=== PATIENT | male | born 1995 | race Caucasian/White ===

== ENCOUNTER 2020-01-20 06:50 | Outpatient (NON) | payer OTHER, SELFPAY ==
[2020-01-20 19:12] LABS: SARS-CoV-2 RNA PCR Negative
== END 2020-01-20 06:51 ==
PROVIDERS: Visit Provider Physician Assistant
DX: R68.89 Other general symptoms and signs (principal); Z20.828 Contact with and (suspected) exposure to other viral communicable diseases
CPT/HCPCS: 87635; C9803; U0003

== ENCOUNTER 2022-02-05 18:47 | Emergency (ER) | payer BC, SELFPAY ==
--- NOTE | ~2022-02-05 | CT_ITS ---
EXAMINATION: CT abdomen pelvis w con DATE: 02/05/2022 21:13 INDICATION: Left testicular pain and swelling. Left testicular mass. TECHNIQUE: Computed tomography (CT) of the abdomen and pelvis was performed without intravenous contr ast. Automated exposure control and iterative reconstruction technique were employed. The dose-length product was 755.76 mGy-cm. COMPARISON: None. FINDINGS: Lower thorax: Unremarkable Liver: Normal. Biliary/Gallbladder: Gallbladder is normal. No bile duct dilation. Pancreas: No mass or duct dilation. Spleen: Normal. Adrenals:No mass. Kidneys: No mass, stone, or hydronephrosis. GI tract: No small or large bowel dilation. Normal appendix. Some mucosal fat infiltration in the pro ximal small bowel. Mild colonic wall edema in the ascending colon, descending colon and sigmoid, with out wall thickening or surrounding inflammatory change. Mesentery/Peritoneum: No ascites, mass, or free air. Multiple prominent mesenteric lymph nodes measur ing up to 9 mm in short axis diameter. Retroperitoneum: No mass. Pelvis: Pelvic organs are within normal limits. Mild bladder wall thickening likely due to adequate d istention. Scattered bilateral subcentimeter pelvic lymph nodes. Soft Tissues: Soft tissues and body wall unremarkable. Scattered subcentimeter bilateral inguinal nod es. Very small fat-containing left inguinal hernia. Left testicular mass, better seen on prior ultras ound. Bones: No acute osseous finding. IMPRESSION: Borderline mesenteric lymphadenopathy. No pathologic inguinal or pelvic lymphadenopathy. Mild colonic wall edema may reflect infectious or inflammatory colitis. Left testicular mass. Reviewed, dictated and finalized at location K. IMPRESSION: Borderline mesenteric lymphadenopathy. No pathologic inguinal or pelvic lymphad enopathy. Mild colonic wall edema may reflect infectious or inflammatory coliti s. Left testicular mass.
--- NOTE | ~2022-02-05 | XR_ITS ---
EXAMINATION: XR chest 2V Exam Date/Time: 02/05/2022 21:14 CDT HISTORY: tumor screening Comparison: None available. RESULT: Lines, tubes, and devices: None. Lungs and pleura: Clear. Cardiomediastinal silhouette: Normal. Other: No acute osseous or upper abdominal finding. IMPRESSION: No acute cardiopulmonary process. No pulmonary nodules or masses detected. Reviewed, dictated and finalized at location K.
--- NOTE | ~2022-02-05 | US_ITS ---
EXAMINATION: US scrotum doppler DATE: 02/05/2022 19:55 INDICATION: Left scrotal pain and swelling. Rule out torsion. TECHNIQUE: Grayscale and Doppler ultrasound images of the testes were obtained. COMPARISON: None. FINDINGS: The right testis measures 4.3 x 2.7 x 2.9 cm. The left testis measures 5.6 x 3.7 x 3.2 cm. 3.7 cm heterogeneously the pelvic hypervascular mass in the left testicle. There is normal vascular f low to both testes. The right epididymis is normal with normal vascular flow. The left epididymis is normal with normal vascular flow. No varicocele. Small volume bilateral hydroceles. IMPRESSION: 1. 3.7 cm solid left testicular mass. Consider urology referral. 2. No sonographic evidence of torsion. Reviewed, dictated and finalized at location K.
[2022-02-05 18:48] VITALS: BP 134/80; PULSE 90; RESP 16; TEMP 36.5; O2SAT 100
[2022-02-05 19:34] LABS: Add Urine Microscopic? NO; Appearance Urine Clear (Clear); Bilirubin Urine Negative (Negative); Blood Urine Negative (Negative); Color Urine Yellow (Yellow); Glucose Urine UA Negative (Negative); Ketones Urine Negative (Negative); Leukocyte Esterase Ur Negative LEU/UL (Negative); Nitrate Urine Negative (Negative); Protein Urine Negative (Negative); Specific Grav Ur 1.025 (1.001-1.035); pH Urine 6.5 (5.0-9.0)
[2022-02-05 19:37] LABS: Basophils Percent Auto 0.8 % (0.2-1.2); Eosinophils Absolute Auto 0.2 K/mm3 (0-0.3); Hematocrit 46.2 % (42.0-52.0); Hemoglobin 15.7 g/dL (14.0-18.0); Lymphocytes Absolute Auto 1.42 K/mm3 (0.9-3.2); Lymphocytes Percent Auto 39.2 % (18.3-44.2); Mean Corpuscular Hemoglobin 30.7 pg (26-34); Mean Corpuscular Volume 90.4 fl (80-100); Mean Platelet Volume 9.7 fl (7.4-10.4); Monocytes Absolute Auto 0.5 K/mm3 (0.1-0.6); Monocytes Percent Auto 12.4 % (2.6-8.5); Neutrophils Absolute Auto 1.5 K/mm3 (1.3-6.7); Neutrophils Percent Auto 42.6 % (45.5-73.1); Platelet Count Result 266 k/mm3 (150-375); Red Blood Count 5.11 M/mm3 (4.6-6.20); Red Cell Distribution Width 12.4 % (11.5-14.5); White Blood Count 3.6 K/mm3 (4.5-10.0)
[2022-02-05 19:47] LABS: Anion Gap 8 mmol/L (8-16); Blood Urea Nitrogen 12 mg/dL (9-20); Calcium 8.8 mg/dL (8.4-10.2); Carbon Dioxide 29 mmol/L (22-30); Chloride 100 mmol/L (98-107); Estimated CRCL calculation 122 ml/min; Estimated Glomerular Filt Rate > 60; Glucose 134 mg/dL (65-110); Potassium 3.6 mmol/L (3.4-5.0); Sodium 137 mmol/L (137-145)
--- NOTE | 2022-02-05 20:01 | ED.MALEGU ---
HPI - Male Genitourinary General Chief complaint: Urogenital-Male Stated complaint: L testicular swelling and tender Time Seen by Provider: 02/05/22 19:02 History of Present Illness HPI Narrative: Patient is a 26-year-old male who presents ER with left testicular pain and swelling. Ongoing for 2 days. No urinary frequency urgency or dysuria. No drainage from tip of the penis. No concerns for sexually transmitted infection according to him. Patient's is present. Patient does report diarrhea over the last couple days as well but no other additional symptoms. Related Data Home Medications Medication Instructions Recorded Confirmed No Home Medications 08/02/20 08/02/20 Allergies Allergy/AdvReac Type Severity Reaction Status Date / Time No Known Allergies Allergy Verified 02/05/22 19:08 Review of Systems Review of Systems: All systems reviewed & are unremarkable except as noted in HPI and below Constitutional: Constitutional: Denies chills, Denies fatigue and Denies fever(s) Gastrointestinal: Gastrointestinal: Denies abdominal pain, Reports diarrhea, Denies nausea and Denies vomiting Genitourinary: Genitourinary: Denies genital lesions, Denies dysuria, Denies penile discharge, Reports testicular pain and Denies urinary frequency PMF Past Medical History Medical History (Updated 02/05/22 @ 21:46 by Isaac Ahumada MD) Healthy adult male Surgical History Surgical History (Updated 02/05/22 @ 20:05 by Isaac Ahumada MD) No history of previous surgery Social History Social History Smoking status: Never smoker Alcohol intake: never Exam Narrative: GENERAL: Well-appearing, well-nourished, and in no acute distress. HEAD: Normocephalic, atraumatic. CHEST: Clear to auscultation. No respiratory distress. HEART: Regular rate and rhythm. Normal peripheral pulses. ABDOMEN: Soft, nontender, nondistended. : Normal-appearing penis without drainage. Nontender normal-appearing right testicle and no evidence of hernia. Left testicle firm and irregular especially on the posterior aspect, larger than the right and volume. Slight tenderness palpation left testicle. EXTREMITIES: Normal range of motion. No edema. NEURO: Alert and oriented x3. PSYCH: Normal mood and affect. Course Course Emergency Course: Patient informed of results and the concern for cancer in the testicle. Patient verbalized understanding. Discussed fertility and he does not have children at this time. Would recommend patient store a sample of his semen and counseled him on this. I have discussed the case with urology and they would like to see the patient tomorrow morning at 8 AM and have also requested that he receive a chest x-ray and abdomen pelvis CT scan for staging. Tumor markers were added on and sent to the lab to benefit urology. Vital Signs Vital signs: Vital Signs Temperature 97.7 F 02/05/22 18:48 Pulse Rate 90 02/05/22 18:48 Respiratory Rate 16 02/05/22 18:48 Blood Pressure 134/80 02/05/22 18:48 Pulse Oximetry 100 02/05/22 18:48 Oxygen Delivery Room Air 02/05/22 18:48 Temperature 97.7 F 02/05/22 18:48 Pulse Rate 90 02/05/22 18:48 Respiratory Rate 16 02/05/22 18:48 Blood Pressure 134/80 02/05/22 18:48 Pulse Oximetry 100 02/05/22 18:48 Oxygen Delivery Room Air 02/05/22 18:48 MDM - Male Genitourinary Lab Data Result diagrams: 02/05/22 19:31 02/05/22 19:31 Labs: Lab Results 02/05/22 02/05/22 02/05/22 Range/Units 19:23 19:31 19:31 WBC 3.6 L (4.5-10.0) K/mm3 RBC 5.11 (4.6-6.20) M/mm3 Hgb 15.7 (14.0-18.0) g/dL Hct 46.2 (42.0-52.0) % MCV 90.4 (80-100) fl MCH 30.7 (26-34) pg MCHC 34.0 (32-36) g/dl RDW 12.4 (11.5-14.5) % Plt Count 266 (150-375) k/mm3 MPV 9.7 (7.4-10.4) fl Immature Gran % (Auto) 0.0 (0-0.5) % N
[2022-02-05 20:31] LABS: Lactate Dehydrogenase 476 U/L (313-618)
[2022-02-05 22:00] VITALS: BP 130/78; PULSE 69; O2SAT 99
[2022-02-09 11:24] LABS: HCG Tumor Marker <3 mIU/mL (<5)
[2022-02-13 18:41] LABS: Alpha Fetoprotein Tumor Marker 93.2 ng/mL (<6.1)
== END 2022-02-05 22:06 | disposition home or self-care (01) ==
PROVIDERS: Emergency Provider Emergency Medicine; PCP Family Medicine
DX: N50.9 Disorder of male genital organs, unspecified (principal)
CPT/HCPCS: 36415; 71046; 74177; 76870; 80048; 81003; 81025; 82105; 83615; 84702; 85025; 93976; 99284; Q9967

== ENCOUNTER 2022-06-04 14:24 | Outpatient (CLI) | payer OTHER, BC, SELFPAY ==
[2022-06-04 20:57] LABS: Hemoglobin A1C 6.7 % (<5.7)
[2022-06-07 09:11] LABS: Glutamic acid decarboxylase AA 15 IU/mL (<5)
[2022-06-14 22:27] LABS: Islet Cell Antibody Screen NEGATIVE (NEGATIVE)
== END 2022-06-04 14:25 | disposition home or self-care (01) ==
LOC: ANHGOSHLAB 14:27
PROVIDERS: PCP Family Medicine; Visit Provider Family Medicine
DX: R73.09 Other abnormal glucose (principal); Z83.3 Family history of diabetes mellitus
CPT/HCPCS: 36415; 83036; 86337; 86341

== ENCOUNTER 2022-08-15 09:23 | Outpatient (CLI) | payer OTHER, SELFPAY ==
[2022-08-15 13:41] LABS: Anion Gap 7 mmol/L (8-16); Blood Urea Nitrogen 15 mg/dL (9-20); Calcium 9.1 mg/dL (8.4-10.2); Carbon Dioxide 28 mmol/L (22-30); Chloride 101 mmol/L (98-107); Estimated Glomerular Filt Rate > 60; Glucose 120 mg/dL (65-110); Potassium 4.2 mmol/L (3.4-5.0); Sodium 136 mmol/L (137-145)
[2022-08-20 07:36] LABS: C-Peptide 1.84 ng/mL (0.80-3.85)
== END 2022-08-15 09:24 | disposition home or self-care (01) ==
LOC: ANHWCLAB 09:25
PROVIDERS: PCP Family Medicine; Visit Provider Internal Medicine Endocrinology, Diabetes & Metabolism
DX: E11.9 Type 2 diabetes mellitus without complications (principal)
CPT/HCPCS: 36415; 80048; 84681

== ENCOUNTER 2023-07-12 10:26 | Outpatient (CLI) | payer OTHER, SELFPAY ==
[2023-07-12 11:07] LABS: Cholesterol 169 mg/dL (0-200); HDL Direct 36 mg/dL; Triglycerides 65 mg/dL (<150)
[2023-07-12 11:21] LABS: LDL Cholesterol Direct 99 mg/dL
[2023-07-12 11:24] LABS: Free T4 Free Thyroxine 1.26 ng/mL (0.78-2.19); Vitamin D 25 Hydroxy 48.8 ng/mL
[2023-07-12 11:26] LABS: Creatinine Urine 261.3 mg/dL
[2023-07-12 11:30] LABS: MALB Creatinine Ratio 2.5 mg/g (0-30); Microalbumin Urine Random 6.6 mg/L (0-16.7)
== END 2023-07-12 10:27 | disposition home or self-care (01) ==
LOC: ANHLAB 10:30
PROVIDERS: PCP Family Medicine; Visit Provider Nurse Practitioner Family
DX: E11.9 Type 2 diabetes mellitus without complications (principal)
CPT/HCPCS: 36415; 80061; 82043; 82306; 82607; 84439; 84443

== ENCOUNTER 2025-03-31 10:49 | Outpatient (CLI) | payer OTHER, SELFPAY ==
[2025-03-31 17:24] LABS: Alanine Aminotransferase 67 U/L (6-50); Albumin Level 4.1 g/dL (3.5-5.1); Alkaline Phosphatase 61 U/L (38-126); Anion Gap 6 mmol/L (4-12); Aspartate Amino Transferase 43 U/L (17-59); Bilirubin,Total 0.4 mg/dL (0.2-1.3); Blood Urea Nitrogen 12 mg/dL (9-20); Calcium 8.7 mg/dL (8.4-10.2); Carbon Dioxide 28 mmol/L (22-30); Chloride 101 mmol/L (98-107); Cholesterol 205 mg/dL (0-200); Estimated Glomerular Filt Rate > 60; Glucose 121 mg/dL (65-110); HDL Direct 46 mg/dL; Sodium 135 mmol/L (137-145); Total Protein 7.1 g/dL (6.3-8.2); Triglycerides 60 mg/dL (<150)
[2025-03-31 17:33] LABS: Potassium 4.0 mmol/L (3.4-5.0)
[2025-03-31 18:00] LABS: Thyroid Stimulating Hormone 2.540 uIU/mL (0.465-4.680)
[2025-03-31 18:15] LABS: MALB Creatinine Ratio < 7.3 mg/g (0-30)
[2025-03-31 18:19] LABS: Vitamin B12 366.0 pg/mL (239-931)
== END 2025-03-31 10:50 | disposition home or self-care (01) ==
LOC: ANHGOSHLAB 10:50
PROVIDERS: PCP Family Medicine; Visit Provider Internal Medicine Endocrinology, Diabetes & Metabolism
DX: E13.9 Other specified diabetes mellitus without complications (principal); R79.89 Other specified abnormal findings of blood chemistry
CPT/HCPCS: 36415; 80053; 80061; 82043; 82306; 82607; 84443; 84681